=== PATIENT | male | born 1960 | race Caucasian/White ===

== ENCOUNTER 2024-09-18 06:41 | Observation (INO) | payer BC, SELFPAY ==
[2024-09-18 02:53] VITALS: BP 156/86
--- NOTE | 2024-09-18 04:22 | EDRN ---
Pt was in [employer] [place] and noted pain/swelling L great toe 3 days ago. Symptoms worsened to the point pt was unable to walk [place] the airport and had to use a wheelchair. Pt came from airport to this ED for evaluation. Pt last took ibuprofen about
5 hours ago and has not gotten much relief. Pt is in the 3rd month of a drug trial for gout. One week ago, pt was instructed to stop taking colchicine which he did. Pt concerned that is why he is having a gout flare now. No fever/chills/cough.
--- NOTE | 2024-09-18 05:07 | ED.GENMED ---
History of Present Illness
General
Chief Complaint: Musculo-Skeletal Complaint
Source: patient and family
Exam Limitations: none
Time Seen by Provider: 09/18/24 04:22
Nursing documentation reviewed up to this point in time: agreed with
History of Present Illness
History of Present Illness:
Pleasant 64-year-old male that presents to the emergency department with acute gout exacerbation. Patient has a history of gout and has had gout since young age. He has been on colchicine much of his life which seemed to control his outbreaks.
Several months ago he was started on a trial medication to treat gout. He took this in addition to the colchicine for the first month. During the second part of the study, they weaned the colchicine. His last dose of colchicine was over a week
ago. He was traveling throughout [facility] when his gout flared up. They attempted to get the colchicine which seem to have worked in the past but either the medication that they got was different or a lower dose but patient states that he had no
relief. He got off his flight and could not walk. He states that his left ankle was stiff. He came directly here. Patient denies fever, chills, chest pain, shortness of breath. Denies blurry vision.
Past History
Past History
ED Past Medical History: HTN, Hypercholesterolemia, VT and Other (gout)
ED Past Surgical History: Negative Cardiac
Social History
Tobacco: Smoker
Alcohol: Occasional
Drug: None
Personal:
Living: with family
Employment: Employed
Family History
Family History: Negative Early CAD
Review of Systems
Review of Systems
Allergies reviewed?: Yes
Other source history: family
All Other Systems: ROS reviewed and negative except as documented in HPI and ROS
Constitutional: Reports no symptoms
EENT: Reports no symptoms
Respiratory: Reports no symptoms
Cardiac: Reports no symptoms
ABD/GI: Reports no symptoms
: Reports no symptoms
Musculoskeletal: Reports joint pain and joint swelling
Skin: Reports no symptoms
Neurological: Reports no symptoms
Endocrine: Reports no symptoms
Hematologic/Lymphatic: Reports no symptoms
Psychiatric: Reports anxiety
Phy Exam
General Physical Exam
General Presentation: moderate distress
General age: appears stated age
General Skin: warm, dry and other (Shiny enlarged joints)
General Habitus: normal
Musculoskeletal Exam
Musculoskeletal Exam: joint swelling and neuro vasc intact
Skin Exam
Skin Exam: erythema, redness, tenderness and warmth
Comment
comment:
Right great toe is swollen erythematous and painful to the touch, right first finger at the MIP joint again is swollen. He states that he had tophi removed in his surgery and the swelling never reduced.
Course
Vital Signs
Initial and Last Documented VS:
Initial Vital Signs
Temp Pulse Resp BP Pulse Ox
98.5 F 91 18 156/86 99
09/18/24 02:53 09/18/24 02:53 09/18/24 02:53 09/18/24 02:53 09/18/24 02:53
Last Documented Vital Signs
Temp Pulse Resp BP Pulse Ox
98.5 F 91 18 156/86 99
09/18/24 02:53 09/18/24 02:53 09/18/24 02:53 09/18/24 02:53 09/18/24 02:53
*Critical Care Note
Total Time (30-74mins, 75-104mins- exclusive of procedures): Not Applicable
Update Note
Update Note:
Patient is not ambulatory at this time due to his stiff joint. Patient to be admitted for further observation
ED Attending Note
-
Portions of this chart may have been created with voice recognition software.� Occasional wrong word or��sound alike� substitutions may have occurred due to the inherent limitations of voice recognition software.
Discharge Plan
Departure
Patient Disposition: Admit
Date of Disposition: 09/18/24
Time of Disposition: 05:14
Presentation/result/management discussed w/ accepting MD/DO: Hospitalist
Condition: Fair
Discharge Problem:
Acute gout exacerbation
Prescriptions:
No Action
aspirin 81 MG tablet,chewable
81 mg PO DAILY Qty: 0 0RF
metoprolol succinate
1 tab PO BID
Patient Comments:
pt and family do not know mg
Trial Drug For Gout
1 tab PO DAILY
Patient Comments:
09/18/24 - pt is in third month of a drug trial for gout
Rx Instructions:
take one tab daily - 50mg, 75mg or placebo
Referrals:
Maykel Kim MD [Family Provider] -
Interventions
Interventions:
*Risk Screen - Suicide Last Done: 09/18/24 04:17
*General Assessment Last Done: 09/18/24 02:53
*Neglect/Abuse Screening Last Done: 09/18/24 04:17
*ED COVID-19 Vaccine History Last Done: 09/18/24 02:53
Discharge Date and Time
Print Language: YORUBA
[2024-09-18 05:19] VITALS: BP 150/86
[2024-09-18] MEDS: DECADRON 10 MG IV (05:24)
[2024-09-18 05:42] LABS: % Basophils 0.3 % (0-2); % Eosinophils 0.7 % (0-6); % Immature Granulocytes 0.4 % (0-0.5); % Lymphocytes 17.8 % (20.5-51.1); % Monocytes 8.8 % (1.7-9.3); Absolute Eosinophils 0.1 10^3/uL (0-0.7); Absolute Lymphocytes 1.9 10^3/uL (1.2-3.4); Absolute Neutrophils 7.8 10^3/uL (1.4-6.5); Hematocrit 39.8 % (39.0-52.0); Hemoglobin 13.6 g/dL (13.0-18.0); Mean Corp Hgb Conc. 34.2 g/dL (33.0-37.0); Mean Corpuscular Hgb 33.3 pg (27.0-31.0); Mean Corpuscular Volume 97.5 fL (80.0-94.0); Mean Platelet Volume 11.1 fL (7.4-10.4); Nucleated Red Blood Cells % 0 % (-); Platelet Count 177 10^3/uL (130-400); Red Blood Cell Count 4.08 10^6/uL (4.70-6.10); Red Cell Dist. Width 13.5 % (11.5-14.5); White Blood Cell Count 10.8 10^3/uL (4.8-10.8)
[2024-09-18 05:52] LABS: APTT 37.8 Sec (23.4-35.0); INR 1.01; PT 13.6 Sec (11.4-14.6)
--- NOTE | 2024-09-18 06:00 | HPS.HSE ---
Family Physician
-
Family Physician: Maykel Kim
Chief Complaint
-
Lower extremity joint pains and swelling
History of Present Illness
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
right great toe as well as right ankle.
Patient reported that he enrolled in the reduced gout trial about 3 months ago. At that time he was taking experimental medication (blinded placebo controlled study) in addition to his colchicine. He felt quite improved with the medication and had
no symptoms. Approximately 1 week ago the study indicated that is supposed to stop the colchicine. Patient stopped taking the colchicine last week Thursday. Then on he developed acute swelling of his left great toe as well as his right
great toe and right ankle. He had severe pain and was unable to ambulate. He denied having any fevers or chills. Patient has had exacerbations of gout in the past and reports presentation is very similar to his prior flare. He reports that he
has been doing very well on the colchicine prior to discontinuation as part of a study program.
Here in the emergency department he was afebrile, blood pressure was 150/86 with a pulse of 80 and 100% saturation on room air. CBC was unremarkable. Chemistries remain pending.
Medical History
Past Medical History
Past Medical History: Reports CAD (Status post stent), HTN and Other (Tophaceous gout)
Past Surgical History: Reports Other (Right index finger tophi excision)
Social History
Tobacco: Smoker
Alcohol: Occasional
Drug: None
Personal:
Living: With Family
Employment: Employed
Family History
Family History: Not pertinent
Allergies / Home Medications
Allergies reflects when Allergies were last updated in [facility].
Home Medications with original date entered in [facility]
Allergy/Medication List:
Allergies
Allergy/AdvReac Type Severity Reaction Status Date / Time
No Known Allergies Allergy Verified 09/18/24 04:19
Home Medications
aspirin 81 mg chewable tablet 81 mg PO DAILY ##0 01/09/15
Trial Drug For Gout 1 tab PO DAILY 09/18/24
metoprolol succinate 25mg tablet, 25mg po BID 09/18/24
Review of Systems
-
History Source: Patient
Constitutional: Reports No Symptoms
EENT: Reports No Symptoms
Respiratory: Reports No Symptoms
Cardiac: Reports No Symptoms
Abdomen/GI: Reports No Symptoms
: Reports No Symptoms
Musculoskeletal: Reports Joint Pain and Joint Swelling
Skin: Reports No Symptoms
Neurological: Reports No Symptoms
Endocrine: Reports No Symptoms
Hematologic/Lymphatic: Reports No Symptoms
Psych: Reports No Symptoms
Physical Exam
Vital Signs
Vital Signs
Temp Pulse Resp BP Pulse Ox
98.5 F 80 16 150/86 100
09/18/24 02:53 09/18/24 05:19 09/18/24 05:19 09/18/24 05:19 09/18/24 05:19
Physical Exam
General: Well Developed, Well Nourished, No Apparent Distress and Comfortable
HEENT: NormoCephalic, Anicteric, Moist mucous membranes and Atraumatic
Respiratory: Clear
Cardiac: S1/S2 and Regular Rhythm
Breast: Deferred by me
GI: Soft, Non Tender, Non Distended and Normal Bowel Sounds
Rectal: Deferred by Provider
Genito-urinary: Deferred by me
Musculoskeletal: No Clubbing, No Cyanosis and Other (Left great toe distal erythema, edema, tenderness to palpation, Right great toe erythema and tenderness to palpation. Right ankle erythema, tenderness, effusion. R foot edema.)
Skin: Warm
Neuro: AO x 3 and Nonfocal/grossly intact
Psych: Calm
Laboratory Results
-
09/18/24 05:18
Data Reviewed
-
Lab Data: Labs Reviewed by me
Old Records: Reviewed
Impression/Plan
-
IMPRESSION:
64 y.o male with h/o gout presents to ED after stopping colchicine for about one week due to study protocol with bilateral toe swelling, redness and tenderness as well as severe right ankle swelling and tenderness. He is unable to ambulate due to
the pain in his feet/legs. He is otherwise well appearing. Chemistries are still pending. Presentation is c/w gout and not infectious arthritis.
PLAN:
Acute gout flare - Patient on study that is currently withholding colchicine per protocol with continuation of study medication. Has moderate to severe acute flare
- admit to medsurg observation
- due to study parameters will start prednisone 40mg daily, patient has no systemic contraindications to steroids
- he will confirm with study officials about going back colchicine
- pain control with analgesics prn for now
- patient not currently on allopurinol
- continue metoprolol succinate 25 mg bid and aspirin for known h/o CAD
DVT PPX - SCDs
Code status - full code
[2024-09-18 06:07] LABS: ALT (SGPT) 21 U/L (0-50); AST (SGOT) 28 U/L (17-59); Albumin 3.7 g/dl (3.5-5.0); Alkaline Phosphatase 68 U/L (38-126); Blood Urea Nitrogen 19 mg/dl (9-20); Calcium 8.8 mg/dl (8.4-10.2); Carbon Dioxide 25 mmol/L (22-30); Chloride 104 mmol/L (98-107); Glucose 122 mg/dl (70-99); Potassium 4.2 mmol/L (3.5-5.1); Sodium 137 mmol/L (135-145); Total Bilirubin 0.9 mg/dl (0.2-1.3); Total Protein 6.7 g/dl (6.3-8.2); Uric Acid 7.6 mg/dl (3.5-8.5); eGFR > 60.00
[2024-09-18 06:34] LABS: Erythrocyte Sed Rate 43 mm/hour (0-20)
[2024-09-18 07:02] VITALS: BP 151/90; BMI 24.2
[2024-09-18] MEDS: DELTASONE 40 MG PO (07:17)
[2024-09-18] MEDS: TOPROL XL 25 MG PO (07:17)
[2024-09-18] MEDS: LOW STRENGTH ASPIRIN 81 MG PO (07:17)
--- NOTE | 2024-09-18 10:30 | W.DCSUMMARY ---
Discharge Summary
Discharge Data
Date of Admission: 09/18/24
Date of Discharge: 09/18/24
-
Pending Results: No
Hospital Course
64 male, history of gout, CAD s/p PCI, HTN
Presenting with acute onset gouty arthritis (swelling and redness of his left great toe, right great toe as well as right ankle) that caused ambulatory dysfunction due to intractable pain. Recently stopped colchicine as on experimental agent per
experimental study guidelines.
Initiated on prednisone with improvement in symptomatology. Evaluated by physical therapy
On prednisone 40 mg daily x 7 days along with GI prophylaxis with Protonix 40 mg daily to be taken in the morning.
Would call PCP and experimental trial OTC can be reinitiated on colchicine.
On the day of discharge pain had improved. Able to ambulate from stretcher to bed.
Still has left great toe swelling which is worse than the right great toe and right ankle swelling. However there is no tenderness to palpation when examined. Otherwise no other joint pain or effusions noted.
Discharge Plan
-
Patient Disposition: Home with Home Care
Discharge Diagnosis/Procedures: Acute gouty arthritis
Condition: Good
Activity Restrictions/Additional Instructions:
Presenting with acute onset gouty arthritis (swelling and redness of his left great toe, right great toe as well as right ankle) that caused ambulatory dysfunction due to intractable pain. Recently stopped colchicine as on experimental agent per
experimental study guidelines.
Initiated on prednisone with improvement in symptomatology. Evaluated by physical therapy
On prednisone 40 mg daily x 7 days along with GI prophylaxis with Protonix 40 mg daily to be taken in the morning.
Would call PCP and experimental trial OTC can be reinitiated on colchicine.
Referrals:
Maykel Kim MD [Family Provider] -
Prescriptions:
New
prednisone 20 mg Tablet
40 mg PO DAILY 7 Days Qty: 14 0RF
metoprolol succinate 25 mg Tablet Extended Release 24 Hr
25 mg PO BID Qty: 30 0RF
pantoprazole [Protonix] 40 mg tablet,delayed release (DR/EC)
40 mg PO DAILY Qty: 7 0RF
Continued
aspirin 81 MG tablet,chewable
81 mg PO DAILY Qty: 0 0RF
metoprolol succinate
1 tab PO BID
Patient Comments:
pt and family do not know mg
Trial Drug For Gout
1 tab PO DAILY
Patient Comments:
09/18/24 - pt is in third month of a drug trial for gout
Rx Instructions:
take one tab daily - 50mg, 75mg or placebo
Discharge Orders:
Discharge Patient (As Directed); Ordered 09/18/24
Ordered By: Abdiaziz Zhou
Discharge Date and Time
Print Language: COMORAN
--- NOTE | 2024-09-18 12:36 | CM ---
Patient seen bedside, initial assessment completed. Patient resides with his and son in a two story home. Patient is independent, denies DME, VN/SNF history. Patient PCP Dr. Kim, pharmacy [facility], confirms prescription
coverage. OBS form reviewed, provided copy to patient, placed in chart. PT to evaluate patient prior to discharge. CM will continue to follow for all discharge planning needs.
Plan; home no needs, watch for PT needs.
== END 2024-09-18 13:31 | disposition home or self-care (01) ==
LOC: 4 WEST ACU 06:41
PROVIDERS: ADMITTING PHYSICIAN Internal Medicine; ATTENDING PHYSICIAN Hospitalist; EMERGENCY PHYSICIAN Student in an Organized Health Care Education/Training Program; FAMILY PHYSICIAN Family Medicine
DX: M10.472 Other secondary gout, left ankle and foot (principal); M10.471 Other secondary gout, right ankle and foot; T50.4X6A Underdosing of drugs affecting uric acid metabolism, initial encounter; Z91.A28 Caregiver's intentional underdosing of medication regimen for other reason; Y92.9 Unspecified place or not applicable; F17.200 Nicotine dependence, unspecified, uncomplicated; I10 Essential (primary) hypertension; E78.00 Pure hypercholesterolemia, unspecified; I25.2 Old myocardial infarction; M79.89 Other specified soft tissue disorders; I25.10 Atherosclerotic heart disease of native coronary artery without angina pectoris; Z95.5 Presence of coronary angioplasty implant and graft; Z79.82 Long term (current) use of aspirin
CPT/HCPCS: 80053; 84550; 85025; 85610; 85652; 85730; 86140; 96374; 97162; 99285; G0378